=== PATIENT | female | born 1955 | race Caucasian/White ===

== ENCOUNTER 2019-07-19 16:12 | Inpatient (IN) | payer OTHER ==
[~2019-07-19] VITALS: Ht 170.2 cm; Wt 50.8 kg
--- OUTSIDE RECORDS SUMMARY | 2019-07-19 16:15 | XMS REPORT ---
Author [facility] Address Unknown Phone Unavailable Care Team Providers Care Log Sorting Supervisor Name Role Phone UNKNOWN, REFFERING PP Unavailable REYNALDO PURCELL M.D. Unavailable Unavailable Payers Payer Name Policy Type Policy Number Effective Date Expiration Date Problems This patient has no known problems. Allergies, Adverse Reactions, Alerts Allergy Name Allergy Type Status Severity Reaction(s) Onset Date Inactive Date Treating Clinician Comments iodine DA Active ME 2015-06-03 00:00:00 Medications This patient has no known medications. Encounters Start Date/Time End Date/Time Encounter Type Admission Type Attending Clinicians Care Facility Care Department Encounter ID 2017-02-05 15:48:00 2017-02-05 15:48:00 Outpatient C REYNALDO PURCELL M.D. [facility] [id number] Results Test Description Test Time Test Comments Text Results Atomic Results Result Comments [place], ERCP 2019-03-14 11:32:00 Reason for exam:->luq pain,abnormal imaging FINAL REPORT A fluoroscopic unit was utilized for a procedure performed in the operating room. No interpretation was requested. Please refer to the operative report regarding findings. Please refer to PACS for patient radiation dose information. Signed: Coy Shay Verified Date/Time: 03/14/2019 11:32:23 Reading Location: [address] Radiology Reading Room E lectronically signed by: COY SHAY MD on 03/14/2019 11:32 AM BREAST ULTRASOUND BILATERAL 2018-12-02 12:32:17 - BREAST ULTRASOUND BILATERALULTRASOUND OF BOTH BREASTS: 12/02/2018CLINICAL: History of Breast Cancer. Comparison is made to exams dated 04/22/2016 ultrasound and 04/22/2015 ultrasound - [facility]-. Color flow and real-time ultrasound of both breasts were performed. Tobin scale images of the real-time examination were reviewed. Status post bilateral mastectomy with implant reconstruction. Bilateral reconstructed breast survey ultrasound demonstrates no suspicious sonographic abnormality. No axillary lymphadenopathy was seen. Snowstorm appearance in the right axillary lymph node representing free silicone overall suggestive of implant rupture.IMPRESSION: BENIGN There is no sonographic evidence of malignancy. Free silicone noted in the right axillary region which is suggestiv e of implant rupture. Breast MRI without contrast silicone sequence could be obtained to evaluate implant integrity if clinically indicated.Mitchell Whitaker M.D. ss/:12/02/2018 12:32:17 Septic Tank Installer: Kandi Haq , [facility]-letter sent: BIRADS 1-2 Normal Ultrasound BI-RADS: 2 Benign - CT ABD PELVIS W/O CONT 2018-05-31 15:35:00 Name: MARISA MIRZA [facility] : 1955 Age/S: 63 / F [address] [place] [address] Unit #: [id number] Loc: [place] [address] Phys: Mick De Jr, MD Acct: [id number] Dis Date: Status: REG CLI PHONE #: [phone] Exam Date: 05/31/2018 1343 FAX #: [phone] Reason: UTERE STONE. EXAMS: CPT CODE: [id number] CT ABD PELVIS W/O CONT [address]843 CT OF THE ABDOMEN AND PELVIS PERFORMED May 31, 2018 . CLINICAL HISTORY: Ureteral stone . COMPARISON: November 13, 2016 . TECHNIQUE: 5 mm helical images through the abdomen and pelvis with no contrast. One or more of the following dose techniques were utilized; automated exposure control, adjustment of the mA and/or kV according to patient size, and/or utilization of iterative reconstruction technique. DLP: 183 mGy-cm. DISCUSSION: Lung bases are clear. Bilateral breast prostheses are noted general changes are noted in the osseous structures. Atherosclerotic vascular calcifications are noted in the great vessels.. The limits of a noncontrast exam, the liver, spleen, pancreas, and bilateral adrenals are within normal limits. The gallbladder is enlarged measuring 9.9 x 3.4 cm common bile duct is enlarged measuring 11 mm. The left kidney contour is irregular, compatible with prior scarring. Small stable calyceal stone is noted on the left. No right renal or ureteral calculi is seen. In the left mid ureter is a oval 13 x 5 x 5 mm calculi. This remains relatively unchanged compared to the prior scan of November 2016. No hydronephrosis or hydroureter is noted. No adenopathy or free fluid is seen in the abdomen or pelvis. Diverticulosis without radiographic evidence of diverticulitis. A normal-appearing appendix is p resent in the low midline pelvis. The uterus and adnexa are within normal limits. The visualized distal ureters and urinary bladder are within normal limits. IMPRESSION: 1.In the left mid ureter is a oval 13 x 5 x 5 mm calculi. This remains relatively unchanged compared to the prior scan of November 2016. 2. Small left renal calculi with scarring of the left kidney, stable compared to previous exam 3. Hydropic gallbladder 4. Diverticulosis PAGE 1 Signed Report (CONTINUED) Name: MARISA MIRZA [facility] : 1955 Age/S: 63 / F [address] [place] [address] Unit #: [id number] Loc: [place] [address] Phys: Mick De Jr, MD Acct: [id number] Dis Date: Status: REG CLI PHONE #: [phone] Exam Date: 05/31/2018 1347 FAX #: [phone] Reason: UTERE STONE. EXAMS: CPT CODE: [id number] CT ABD PELVIS W/O CONT 23951 <Continued> at 1533 Reported and signed by: Ivon Desouza M.D. CC: Mick De Jr, MD Technologist:RT Mariel(R)(CT) CTDI: DLP: Trnscb Date/Time: 05/31/2018 (1535) tESG Orig Print D/T: S: 05/31/2018 (1538) CTDI: DLP: PAGE 2 Signed Report
[2019-07-19] MEDS ORDERED: ONDANSETRON HCL INJ 2MG/ML 2ML 2 MG/ML VIAL IV STA (16:25)
[2019-07-19] MEDS ORDERED: SODIUM CHLORIDE 0.9% 1000ML 1,000 ML IV STA ×2 (16:25→19:13)
[2019-07-19] MEDS ORDERED: MORPHINE SULFATE INJ 4 MG/ML INJ 1ML IV STA ×2 (16:25→19:33)
[2019-07-19 16:49] LABS: BASOPHILS # (AUTO) 0.1 (0.0-0.1); BASOPHILS % 0.4 % (0.0-1.0); EOSINOPHILS % 0.2 % (0.0-6.0); HEMATOCRIT 39.4 % (34.2-44.1); HEMOGLOBIN 13.4 g/dL (12.0-16.0); LYMPHOCYTES # (AUTO) 1.4 (1.0-3.2); LYMPHOCYTES % 11.6 % (18.0-39.1); MEAN CORPUSCULAR HEMOGLOBIN 30.5 pg (28-32); MEAN CORPUSCULAR VOLUME 89.5 fL (81-99); MONOCYTES # (AUTO) 1.3 (0.2-0.8); MONOCYTES % 11.4 % (4.4-11.3); NEUTROPHILS # (AUTO) 8.9 (2.1-6.9); NEUTROPHILS % 76.1 % (38.7-80.0); PLATELET COUNT 323 x10e3/uL (140-360)
[2019-07-19] MEDS ORDERED: PANTOPRAZOLE 40 MG 10ML VIAL IV ONE (17:00)
[2019-07-19 17:06] LABS: ALANINE AMINOTRANSFERASE 15 IU/L (0-55); ALBUMIN 3.7 g/dL (3.5-5.0); ALBUMIN/GLOBULIN RATIO 0.9 (0.8-2.0); ALKALINE PHOSPHATASE 86 IU/L (40-150); AMYLASE 39 U/L (25-125); ANION GAP 13.5 mmol/L (8-16); BLOOD UREA NITROGEN 23 mg/dL (7-26); BUN/CREATININE RATIO 25 (6-25); CALCIUM 9.8 mg/dL (8.4-10.2); CARBON DIOXIDE 25 mmol/L (22-29); CHLORIDE 102 mmol/L (98-107); CREATINE KINASE 42 IU/L (29-168); CREATININE, SERUM 0.91 mg/dL (0.57-1.11); EST GLOMERULAR FILTRATION RATE > 60 ML/MIN (60-); GLUCOSE 103 mg/dL (74-118); LIPASE 23 U/L (8-78); POTASSIUM 4.5 mmol/L (3.5-5.1); SODIUM 136 mmol/L (136-145)
[2019-07-19 17:26] LABS: THYROID STIMULATING HORMONE 0.843 uIU/mL (0.350-4.940)
--- NOTE | 2019-07-19 17:38 | Diagnostic Imaging Report ---
EXAM: Gallbladder Ultrasound INDICATION: ^ABD PAIN ^Y COMPARISON: None. TECHNIQUE: Transverse and longitudinal images of the gallbladder were obtained. FINDINGS: Liver: Size: 13.5 cm in the right midclavicular line, normal Appearance: Normal echogenicity, smooth contour Mass: No focal masses Gallbladder: Stones/Sludge: Multiple echogenic stones in the gallbladder and moderate amount of sludge Wall: 0.4 cm, borderline Appearance: Borderline wall thickening. No pericholecystic fluid. The gallbladder is distended measuring 13.5 cm in length. Sonographic Lee's Sign: Negative Bile Ducts: Intrahepatic Ducts: No dilatation Extrahepatic Ducts: Common bile duct measures 0.4 cm, no dilatation but contains a 0.6 cm stone Pancreas: Visualized portions of the pancreatic head, neck and proximal body are normal. Kidneys: Length: Right 9.7 cm Echogenicity: Normal Collecting System: No hydronephrosis Stone: None Cyst/Mass: 0.3 cm echogenic focus in the right kidney may represent a nonobstructing stone. Vessels: Aorta: Visualized portions are normal Inferior Vena Cava: Visualized portions are normal Main Portal Vein: 0.8 cm, normal size with hepatopetal flow. Free Fluid: No ascites or pleural effusion IMPRESSION: Cholelithiasis and choledocholithiasis. Borderline thickness of the gallbladder wall (0.4 cm) with associated gallbladder hydrops may represent an early sign of acute cholecystitis. Recommend further evaluation with MRCP. Possible nonobstructing 0.3 cm right nephrolithiasis. Signed by: Dr. Liz Ceron M.D. on 07/19/2019 5:35 PM
--- NOTE | 2019-07-19 18:02 | Diagnostic Imaging Report ---
EXAMINATION: CHEST SINGLE (PORTABLE) INDICATION: ^ERMD ORDER ^[id number] ^1630 ^Y COMPARISON: None FINDINGS: AP view TUBES and LINES: None. LUNGS: Lungs are well inflated. Lungs are clear. There is no evidence of pneumonia or pulmonary edema. PLEURA: No pleural effusion or pneumothorax. HEART AND MEDIASTINUM: The cardiomediastinal silhouette is unremarkable.. BONES AND SOFT TISSUES: No acute osseous lesion. Soft tissues are unremarkable. UPPER ABDOMEN: No free air under the diaphragm. IMPRESSION: No acute thoracic abnormality. Signed by: Dr. Liz Ceron M.D. on 07/19/2019 5:58 PM
[2019-07-19] MEDS ORDERED: SODIUM CHLORIDE 0.9% 50ML 50 ML ONE (18:32)
[2019-07-19] MEDS ORDERED: IOPAMIDOL 370 MG/ML 200 ML INFUS..BTL INJ ONE (18:32)
[2019-07-19] MEDS ORDERED: PIPER-TAZ 3.375 GM 50 ML IV SCH (18:45)
[2019-07-19] MEDS ORDERED: SODIUM CHLORIDE 0.9% 1000ML 1,000 ML IV SCH (18:52)
[2019-07-19] MEDS ORDERED: ONDANSETRON HCL INJ 2MG/ML 2ML 2 MG/ML VIAL IV PRN (19:00)
[2019-07-19] MEDS ORDERED: MORPHINE SULFATE 2 MG/ML SYR 1ML IV PRN (19:00)
--- NOTE | 2019-07-19 19:13 | Diagnostic Imaging Report ---
EXAM: CT Abdomen and Pelvis WITH contrast INDICATION: ^abd pain COMPARISON: Gallbladder ultrasound 07/19/2019 TECHNIQUE: Abdomen and pelvis were scanned utilizing a multidetector helical scanner from the lung base to the pubic symphysis after administration of IV contrast. Coronal and sagittal reformations were obtained. Routine protocol was performed. Scan was performed when during portal venous phase. IV CONTRAST: 100 mL of Isovue-370 ORAL CONTRAST: None RADIATION DOSE: Total DLP: 194.2 mGy*cm Estimated effective dose: (DLP x 0.015 x size factor) mSv COMPLICATIONS: None FINDINGS: LINES and TUBES: None. LOWER THORAX: Unremarkable HEPATOBILIARY: No focal hepatic lesions. No biliary ductal dilation. GALLBLADDER: Cholelithiasis. Asymmetry wall thickening near the gallbladder fundus, measuring up to 0.6 cm. The gallbladder is distended measuring 13 cm in length consistent with hydropic gallbladder. There is mild fat stranding surrounding the gallbladder. SPLEEN: No splenomegaly. PANCREAS: No focal masses or ductal dilatation. ADRENALS: No adrenal nodules KIDNEYS/URETERS: Kidneys enhance symmetrically. No hydronephrosis. 1.1 cm low-attenuation cyst in the upper pole of the left kidney. Nonobstructing 3 mm calcified stone in the inferior pole of the left kidney on coronal image 54. No stones. GI TRACT: No abnormal distention, wall thickening, or evidence of bowel obstruction. Scattered diverticulosis throughout the sigmoid colon without diverticulitis. Appendix is no visualized. PELVIC ORGANS/BLADDER: Unremarkable. LYMPH NODES: No lymphadenopathy. VESSELS: Unremarkable. PERITONEUM / RETROPERITONEUM: No free air or fluid. BONES: Moderate degenerative changes at L4-L5 and L5-S1. SOFT TISSUES: Bilateral breast implants. IMPRESSION: Cholelithiasis with CT findings highly concerning for acute cholecystitis. Diverticulosis of the sigmoid colon without diverticulitis. Nonobstructing 3 mm left renal stone. Signed by: Dr. Liz Ceron M.D. on 07/19/2019 7:10 PM
[2019-07-19] MEDS: MORPHINE SULFATE INJ 4 MG/ML INJ 1ML IV PRN (19:54)
[2019-07-19 20:00] VITALS: BP 139/77
--- NOTE | 2019-07-19 20:05 | NUR ---
received patient from [facility]. via wheelchair. Patient is alert and oriented. IV to right Ac intact. Patient ambulates independently. Assisted to bed. Call light within reached.
[2019-07-19 21:24] VITALS: BP 139/77
[2019-07-19] MEDS ORDERED: LOTRONEX1 MG PO (23:26)
[2019-07-19] MEDS ORDERED: CELEBREX100 MG PO (23:27)
[2019-07-19] MEDS ORDERED: LEXAPRO20 MG PO (23:27)
[2019-07-19 23:50] VITALS: BP 139/77
[2019-07-20] VITALS (8 sets, daily range): BP systolic 99–129; BP diastolic 65–78
[2019-07-20 00:40] LABS: AMPHETAMINES SCREEN,URINE POSITIVE (NEGATIVE); BENZODIAZEPINES SCREEN,URINE NEGATIVE (NEGATIVE); PHENCYCLIDINE SCREEN,URINE NEGATIVE (NEGATIVE)
[2019-07-20 00:41] LABS: CLARITY,URINE CLEAR (CLEAR); COLOR,URINE YELLOW (YELLOW); KETONES,URINE 1+ (NEGATIVE); LEUKOCYTE ESTERASE ,URINE NEGATIVE (NEGATIVE); NITRITE,URINE NEGATIVE (NEGATIVE); PROTEIN,URINE DIPSTICK NEGATIVE (NEGATIVE)
[2019-07-20 00:42] LABS: BILIRUBIN,URINE SMALL (NEGATIVE); URINE UROBILINOGEN 0.2 mg/dL (0.2 - 1)
[2019-07-20] MEDS: SODIUM CHLORIDE 0.9% 1000ML 1,000 ML IV SCH ×2 (00:45→08:32)
[2019-07-20] MEDS ORDERED: MORPHINE SULFATE INJ 4 MG/ML INJ 1ML IV PRN (00:45)
[2019-07-20] MEDS: MORPHINE SULFATE INJ 4 MG/ML INJ 1ML IV PRN ×3 (00:45→11:01)
[2019-07-20 00:49] LABS: BACTERIA,URINE RARE /HPF; EPITHELIAL CELLS,URINE RARE /LPF
[2019-07-20] MEDS: PIPER-TAZ 3.375 GM 50 ML IV SCH ×4 (02:17→20:15)
[2019-07-20] MEDS ORDERED: SODIUM CHLORIDE 0.9% 50ML 50 ML ONE (09:42)
[2019-07-20] MEDS ORDERED: GADOBENATE DIMEGLUMINE 1 ML IV ONE (09:42)
--- NOTE | 2019-07-20 12:47 | Diagnostic Imaging Report ---
MRI abdomen without with contrast and MRCP HISTORY: Cholelithiasis, cholecystitis, suspected choledocholithiasis Comparison: CT abdomen/pelvis with contrast from 07/19/2019 Technique: Multiplanar and multisequence MRI images of the abdomen were obtained before and after the administration of 10 cc of MultiHance. Three-dimensional reconstructed images of the biliary tree are also reviewed. FINDINGS: Please note that examination is limited by motion artifact, most notably on the postcontrast images. The gallbladder is significantly distended measuring up to 12.9 cm and contains multiple filling defects compatible with gallstones. There is mild wall thickening/edema present. No significant pericholecystic fluid is present. There is mild prominence of the central intrahepatic bile ducts. There is dilatation of the common bile duct measuring up to 1.4 cm. No definitive filling defect is appreciated within the biliary system. However, there is abrupt tapering at the distal common bile duct at the level of the ampulla. No discrete mass is identified within the region of the ampulla or pancreatic head. The pancreatic duct measures 3 mm in caliber. The liver is normal in size and attenuation without evidence for focal abnormality. The stomach, spleen, pancreas, and bilateral adrenal glands are unremarkable. The portal venous system, SMV, and splenic vein are patent. The kidneys are normal in size and location and enhance symmetrically. There are bilateral renal cysts. There is no evidence for hydronephrosis. The visualized loops of bowel are clear normal in caliber. No free fluid or enlarged lymph nodes are identified within the abdomen. Impression: Cholelithiasis with hydropic gallbladder and mild gallbladder wall thickening concerning for acute cholecystitis as noted on the prior CT examination. Significant dilatation of the common bile duct measuring up to 1.4 cm. No definite filling defect identified within the biliary system. However, there is abrupt tapering of the common bile duct the level of the ampulla and a distal common bile duct stone stone or other ampullary pathology cannot be entirely excluded on the basis of this examination. Further evaluation could be performed with ERCP if clinically indicated. Signed by: Dr. Arvin Santoyo MD on 07/20/2019 12:43 PM
[2019-07-20] MEDS ORDERED: IOPAMIDOL 300MG/ML 50ML INFUS..BTL IV ONE (13:38)
[2019-07-20] MEDS ORDERED: BUPIVACAINE 0.5%/EPI 30 ML SDV INJ ONE (13:38)
--- NOTE | 2019-07-20 13:42 | NUR ---
left for surgery
[2019-07-20] MEDS ORDERED: HYDROMORPHONE 1MG/1ML INJ ONE (15:13)
[2019-07-20] MEDS ORDERED: SUGAMMADEX SODIUM 200 MG/2 ML VIAL IV ONE (15:13)
[2019-07-20] MEDS ORDERED: NALOXONE HCL INJ 0.4 MG/ML AMP IV PRN (16:15)
[2019-07-20] MEDS ORDERED: HYDROMORPHONE 0.2MG/ML-SOD CHL 30ML PCA SYRINGE IV PRN (16:15)
[2019-07-20] MEDS ORDERED: LIDOCAINE HCL 2% LOCAL INJ 5 ML SDV VIAL INJ ONE (17:13)
[2019-07-20] MEDS ORDERED: DEXAMETHASONE SOD PHOS INJ 4 MG/ML VIAL ONE (17:13)
[2019-07-20] MEDS ORDERED: ONDANSETRON HCL INJ 2MG/ML 2ML 2 MG/ML VIAL ONE (17:13)
[2019-07-20] MEDS ORDERED: PROPOFOL IV EMULSION 10 MG/ML 20 ML VIAL ONE (17:13)
[2019-07-20] MEDS ORDERED: SUCCINYLCHOLINE CHLORIDE 20 MG/ML 10ML VIAL ONE (17:13)
[2019-07-20] MEDS ORDERED: ROCURONIUM BROMIDE 10 MG/ML 5ML VIAL IV ONE (17:13)
[2019-07-20] MEDS ORDERED: SEVOFLURANE INHAL SOLN 250 ML PEN BTL ONE (17:13)
[2019-07-20] MEDS ORDERED: ACETAMINOPHEN 1000 MG/100 ML IV ONE (17:13)
[2019-07-20] MEDS ORDERED: CEFTRIAXONE SOD 1 GM VIAL ONE (17:13)
[2019-07-20] MEDS ORDERED: HYDROMORPHONE 0.2MG/ML-SOD CHL 30ML PCA SYRINGE IV ONE (17:19)
[2019-07-20] MEDS ORDERED: MIDAZOLAM HCL 2 MG/2 ML VIAL ONE (17:37)
[2019-07-20] MEDS ORDERED: FENTANYL CITRATE/PF 100MCG/2 ML INJ ONE (17:37)
--- NOTE | 2019-07-20 17:51 | Operative Report ---
DATE OF PROCEDURE: 07/20/2019 SURGEON: Junaid Frazier MD PREOPERATIVE DIAGNOSES: Cholecystitis and cholelithiasis, rule out common bile duct stone. POSTOPERATIVE DIAGNOSES: Cholecystitis, cholelithiasis with hydropic gallbladder and stone impacted at the cystic duct common duct junction. OPERATIONS PERFORMED: Laparoscopy, exploratory laparotomy, and cholecystectomy with removal of stone impacted at the cystic duct common duct junction. JOB SETTER HONING: Dr. Wes Frazier and JC Zapien. ANESTHESIA: General. COMPLICATIONS: None. ESTIMATED BLOOD LOSS: 50 mL. DESCRIPTION OF PROCEDURE: With the patient lying in bed in the supine position under good general endotracheal anesthesia, the abdomen was prepped with Betadine solution and draped in the usual manner. A Veress needle was introduced into the umbilicus and pneumoperitoneum was established without any difficulty. An 11 mm trocar was placed into the umbilicus and a 10 mm video laparoscope was placed into the intraabdominal cavity. Under direct vision, three 5 mm trocars were placed in the right subcostal region. Video laparoscopy at this point revealed a hydropic gallbladder that I actually extended all the way down to the right lower quadrant. The omentum was stuck to the gallbladder covering it up and the gallbladder was rather thick-walled. The adhesions to the gallbladder were then and the gallbladder was then decompressed with a needle and white bile consistent with hydropic gallbladder was aspirated. After this was done, we were then able to grasp the gallbladder. The rest of the abdominal exploration did not reveal any other abnormalities. The peritoneum overlying the neck of the gallbladder was then opened and there was a lot of inflammatory reaction around the triangle of Calot. The neck of the gallbladder was then slowly and carefully and the common duct was similarly identified and right at the junction of the cystic duct and common duct junction, there was a hard mass consistent with stone. We spent quite a bit of time dissecting the area, but we could not be sure laparoscopically whether this stone was actually in the common duct or whether the stone was in the distal cystic duct except preoperative studies, that the patient had were suspicious of the stone being in the common duct and since we could not be certain where the stone was, where the cystic duct and common duct junction was. We decided to go ahead and opened, so that we could better delineate the anatomy. The trocars were then removed and right subcostal incision was made, carried down through the subcutaneous tissue through the anterior fascia of the rectus muscle. The rectus muscle was divided with the cautery. The posterior rectus sheath was opened and the abdomen was entered. Upon entering the abdominal cavity, exploration again revealed a palpable hard mass at the cystic duct and common duct junction, and we could not be sure whether the stone was in the cystic duct or in the common duct. The cystic artery was then identified and ligated with a 2-0 silk tie and the gallbladder was then taken down from the top using the cautery scissors. There was a lot of inflammatory reaction in the liver bed. Nonetheless, the gallbladder was slowly and carefully taken down all the way down to the neck. The rather long gallbladder was then resected leaving the cystic duct in place, so that we could actually have a better look at the area of the triangle Calot. After the gallbladder was sent for pathological examination, the cystic duct was then slowly and carefully dissected towards the common duct. There was a lot of inflammatory reaction in the cystic duct and common duct junction. We were able to dissect the cystic duct and common duct junction. The stone was actually impacted in the cystic duct, so we went ahead at this point and opened the cystic duct and milked the stone out. After this was done, the cystic duct and common duct junction was then ligated with 2-0 silk tie. The whole area was then thoroughly irrigated and perfect hemostasis was ascertained. We decided that we did not need to explore the common duct, the patient actually by history had an ERCP performed only 3 months ago, which was negative at that time by the history that the patient gave us. The whole area was sterilely irrigated, perfect hemostasis was ascertained, and the wound was then closed in layers. The posterior rectus sheath was then closed with a running suture of #1 Vicryl. Anterior rectus sheath was closed with a running suture of #1 Vicryl and the skin was closed with clips. The fascia at the umbilicus was closed with a [id number]-[id number]-bojry of 0 Vicryl. All wounds were infiltrated with 0.25% Marcaine solution. Subcutaneous tissue was approximated with 3-0 Vicryl and the laparoscopic wounds were closed with subcuticular 5-0 Vicryl and the skin of the subcostal incision was closed with clips. Dressings were applied. The sponge, lap, and needle count was correct. The patient tolerated the procedure well and returned to the recovery room in stable condition. MD CAITLIN Nixon/TANESHA /[id number]
--- NOTE | 2019-07-20 17:55 | NUR ---
PT ARRIVED TO FLOOR, VIA WHEEL CHAIR ,PT RESP EVEN AND UNLABORED AT THIS TIME, NO C/O PAIN WHEN ASKED, PT ABLE TO MAKE NEEDS KNOWN, PT ORIENTED TO ROOM AND CALL LIGHT.
[2019-07-20] MEDS ORDERED: ACETAMINOPHEN 1000 MG/100 ML IV PRN (18:00)
--- NOTE | 2019-07-20 19:22 | NUR ---
WALKING ROUNDS COMPLETE, REPORT GIVEN TO ONCOMING NURSE.
[2019-07-20] MEDS: PANTOPRAZOLE 40 MG 10ML VIAL IV SCH (19:27)
[2019-07-21] VITALS (7 sets, daily range): BP systolic 118–153; BP diastolic 67–83
[2019-07-21] MEDS: PIPER-TAZ 3.375 GM 50 ML IV SCH ×4 (02:15→22:37)
[2019-07-21 06:05] LABS: BASOPHILS % 0.1 % (0.0-1.0); HEMATOCRIT 35.2 % (34.2-44.1); HEMOGLOBIN 11.4 g/dL (12.0-16.0); LYMPHOCYTES # (AUTO) 1.1 (1.0-3.2); LYMPHOCYTES % 8.1 % (18.0-39.1); MEAN CORPUSCULAR HEMOGLOBIN 30.2 pg (28-32); MEAN CORPUSCULAR HGB CONC 32.4 g/dL (31-35); MEAN CORPUSCULAR VOLUME 93.4 fL (81-99); MONOCYTES # (AUTO) 1.7 (0.2-0.8); MONOCYTES % 12.8 % (4.4-11.3); NEUTROPHILS # (AUTO) 10.2 (2.1-6.9); NEUTROPHILS % 78.6 % (38.7-80.0); PLATELET COUNT 306 x10e3/uL (140-360); RED BLOOD COUNT 3.77 x10e6/uL (3.6-5.1)
[2019-07-21 06:26] LABS: ALANINE AMINOTRANSFERASE 44 IU/L (0-55); ALBUMIN/GLOBULIN RATIO 0.9 (0.8-2.0); ALKALINE PHOSPHATASE 70 IU/L (40-150); ANION GAP 15.1 mmol/L (8-16); BLOOD UREA NITROGEN 12 mg/dL (7-26); BUN/CREATININE RATIO 14 (6-25); CALCIUM 8.8 mg/dL (8.4-10.2); CARBON DIOXIDE 23 mmol/L (22-29); CHLORIDE 105 mmol/L (98-107); CREATININE, SERUM 0.84 mg/dL (0.57-1.11); EST GLOMERULAR FILTRATION RATE > 60 ML/MIN (60-); GLUCOSE 129 mg/dL (74-118); POTASSIUM 5.1 mmol/L (3.5-5.1); SODIUM 138 mmol/L (136-145)
--- NOTE | 2019-07-21 07:00 | NUR ---
REPORT RECEIVED DURING WALKING ROUNDS, PT RESTING QUIETLY IN BED, CALL LIGHT WITH IN REACH Addendum: 07/21/19 at 0918 by Beverly Meléndez RN AGRICULTURAL TECHNICAL OFFICER PUMP REVIEWED WITH PREVIOUS NURSE
--- NOTE | 2019-07-21 09:16 | NUR ---
PT SCHEDULED FOR BRONCH TODAY, SPOKE WITH ANES ABOUT CONDITION, CONSENT PLACED ON CHART, MED REC AND PT IS NPO Addendum: 07/21/19 at 0918 by Beverly Meléndez RN PLEASE DISREGARD, WRONG PATIENT
--- NOTE | 2019-07-21 10:15 | NUR ---
ASSESSMENT: Spiritual concern Pt lonely and in pain. Pt states it is difficult to not have visitors. Intervention: Provided hospitality and empathic listening. Outcome: Pt expressed appreciation for support. No need to follow at this time. YESIKA EASLEY Male Infertility Specialist Spiritual Care Department O: [phone]
--- NOTE | 2019-07-21 10:41 | NUR ---
SPOKE WITH DR Feng ALMANZA, PT WAS NOT RESPONDING TO AMBULANCE OPERATIONS SUPERVISOR PUMP, ORDER FOR CANCELATION AND DILAUDID IVP ORDER GIVEN
[2019-07-21] MEDS: ONDANSETRON HCL INJ 2MG/ML 2ML 2 MG/ML VIAL IV PRN ×4 (10:42→22:51)
[2019-07-21] MEDS: HYDROMORPHONE 1MG/1ML INJ IV PRN ×4 (10:42→22:51)
[2019-07-21] MEDS: PANTOPRAZOLE 40 MG 10ML VIAL IV SCH (16:56)
[2019-07-21] MEDS: SODIUM CHLORIDE 0.9% 1000ML 1,000 ML IV SCH (17:00)
--- NOTE | 2019-07-21 17:05 | NUR ---
SPOKE WITH DR Ana MENDOSA REGARDING PTS INCREASED PULSE RATE, ORDERS GIVEN TO START FLUIDS
--- NOTE | 2019-07-21 19:30 | NUR ---
RECEIVED REPORT FROM DAY NURSE. PATIENT IS RESTING COMFORTABLY IN THE BED. BED IS IN THE LOWEST POSITION. DENIES PAIN OR DISCOMFORT. WILL CONTINUE TO MONITOR PATIENT.
[2019-07-22] VITALS (9 sets, daily range): BP systolic 132–155; BP diastolic 65–85
[2019-07-22] MEDS: SODIUM CHLORIDE 0.9% 1000ML 1,000 ML IV SCH ×3 (02:13→18:05)
[2019-07-22] MEDS: PIPER-TAZ 3.375 GM 50 ML IV SCH ×4 (02:13→19:59)
[2019-07-22] MEDS: HYDROMORPHONE 1MG/1ML INJ IV PRN ×3 (02:31→13:25)
[2019-07-22] MEDS: ONDANSETRON HCL INJ 2MG/ML 2ML 2 MG/ML VIAL IV PRN ×3 (02:50→13:25)
--- NOTE | 2019-07-22 07:00 | NUR ---
REPORT RECEIVED, WALKING ROUNDS PERFORMED, PT RESTING QUIETLY IN BED, CALL LIGHT WITH IN REACH,
--- NOTE | 2019-07-22 07:10 | NUR ---
REPORT GIVEN TO DAY NURSE. PATIENT IS RESTING COMFORTABLY IN THE BED. BED IS IN THE LOWEST POSITION AND CALL LIGHT IS WITHIN REACH.
[2019-07-22 09:09] LABS: BASOPHILS % 0.2 % (0.0-1.0); EOSINOPHILS % 0.3 % (0.0-6.0); HEMATOCRIT 35.1 % (34.2-44.1); HEMOGLOBIN 11.2 g/dL (12.0-16.0); LYMPHOCYTES % 8.2 % (18.0-39.1); MEAN CORPUSCULAR HEMOGLOBIN 29.5 pg (28-32); MEAN CORPUSCULAR HGB CONC 31.9 g/dL (31-35); MEAN CORPUSCULAR VOLUME 92.4 fL (81-99); MONOCYTES # (AUTO) 1.4 (0.2-0.8); MONOCYTES % 12.1 % (4.4-11.3); NEUTROPHILS # (AUTO) 9.3 (2.1-6.9); NEUTROPHILS % 78.7 % (38.7-80.0); PLATELET COUNT 301 x10e3/uL (140-360); RED CELL DISTRIBUTION WIDTH 13.1 % (11.7-14.4)
[2019-07-22 09:28] LABS: ALANINE AMINOTRANSFERASE 34 IU/L (0-55); ALBUMIN 2.7 g/dL (3.5-5.0); ALBUMIN/GLOBULIN RATIO 0.8 (0.8-2.0); ALKALINE PHOSPHATASE 64 IU/L (40-150); ANION GAP 13.1 mmol/L (8-16); BLOOD UREA NITROGEN 6 mg/dL (7-26); BUN/CREATININE RATIO 9 (6-25); CALCIUM 8.9 mg/dL (8.4-10.2); CARBON DIOXIDE 24 mmol/L (22-29); CHLORIDE 106 mmol/L (98-107); CREATININE, SERUM 0.69 mg/dL (0.57-1.11); EST GLOMERULAR FILTRATION RATE > 60 ML/MIN (60-); GLUCOSE 81 mg/dL (74-118); POTASSIUM 4.1 mmol/L (3.5-5.1); SODIUM 139 mmol/L (136-145)
--- NOTE | 2019-07-22 13:06 | NUR ---
DR Ana MENDOSA INTO SEE PT, DISCUSSED POC
[2019-07-22] MEDS: PANTOPRAZOLE 40 MG 10ML VIAL IV SCH (16:42)
--- NOTE | 2019-07-22 17:03 | NUR ---
DR Feng ALMANZA HERE TO MAKE ROUNDS Addendum: 07/22/19 at 1706 by Beverly Meléndez RN DRESSING REMOVED, 3 TROCHAR SITES TO ABDOMEN AND INCISION TO MID ABDOMEN WITH PATY
[2019-07-22] MEDS: HYDROCODONE/APAP 7.5MG-325MG 1 EA TAB PO PRN (17:55)
--- NOTE | 2019-07-22 19:25 | NUR ---
received report from day nurse. patient id resting comfortably in bed. bed is in lowest position and call light is within reach. Denies pain or discomfort. will continue to monitor patient.
[2019-07-23] VITALS: BP 142/82
[2019-07-23] MEDS: PIPER-TAZ 3.375 GM 50 ML IV SCH ×3 (01:06→14:20)
[2019-07-23 04:00] VITALS: BP 146/84
--- NOTE | 2019-07-23 06:39 | NUR ---
patient is resting in the bed, bed is in the lowest position and call light is within reach. No signs of pain or discomfort noted.
[2019-07-23 08:30] VITALS: BP 157/95
[2019-07-23] MEDS: HYDROCODONE/APAP 7.5MG-325MG 1 EA TAB PO PRN ×2 (09:06→14:30)
[2019-07-23 09:11] VITALS: BP 157/95
--- NOTE | 2019-07-23 09:12 | NUR ---
TOLERATING REGULAR DIET AT THIS TIME, REPORTS PASSING FLATUS, MEDICATED PER MD ORDER FOR 7/10 ABDOMINAL PAIN, EDUCATED TO NOT GET OOB WITHOUT CALLING FOR ASSISTANCE, PT VERBALIZED UNDERSTANDING, CALL LIGHT WITHIN REACH
[2019-07-23 09:31] LABS: BASOPHILS % 0.4 % (0.0-1.0); EOSINOPHILS # (AUTO) 0.1 (0.0-0.4); EOSINOPHILS % 1.1 % (0.0-6.0); HEMATOCRIT 38.3 % (34.2-44.1); HEMOGLOBIN 12.6 g/dL (12.0-16.0); LYMPHOCYTES # (AUTO) 1.1 (1.0-3.2); LYMPHOCYTES % 12.6 % (18.0-39.1); MEAN CORPUSCULAR HEMOGLOBIN 29.4 pg (28-32); MEAN CORPUSCULAR HGB CONC 32.9 g/dL (31-35); MEAN CORPUSCULAR VOLUME 89.5 fL (81-99); MONOCYTES # (AUTO) 0.8 (0.2-0.8); MONOCYTES % 9.1 % (4.4-11.3); NEUTROPHILS # (AUTO) 6.9 (2.1-6.9); NEUTROPHILS % 76.5 % (38.7-80.0); PLATELET COUNT 363 x10e3/uL (140-360); RED BLOOD COUNT 4.28 x10e6/uL (3.6-5.1); RED CELL DISTRIBUTION WIDTH 12.9 % (11.7-14.4)
[2019-07-23 09:51] LABS: ALANINE AMINOTRANSFERASE 31 IU/L (0-55); ALBUMIN 2.9 g/dL (3.5-5.0); ALBUMIN/GLOBULIN RATIO 0.8 (0.8-2.0); ALKALINE PHOSPHATASE 64 IU/L (40-150); ANION GAP 16.3 mmol/L (8-16); BLOOD UREA NITROGEN 5 mg/dL (7-26); BUN/CREATININE RATIO 7 (6-25); CALCIUM 9.3 mg/dL (8.4-10.2); CARBON DIOXIDE 22 mmol/L (22-29); CHLORIDE 106 mmol/L (98-107); CREATININE, SERUM 0.67 mg/dL (0.57-1.11); EST GLOMERULAR FILTRATION RATE > 60 ML/MIN (60-); GLUCOSE 106 mg/dL (74-118); POTASSIUM 3.3 mmol/L (3.5-5.1); SODIUM 141 mmol/L (136-145)
[2019-07-23 12:00] VITALS: BP 150/79
[2019-07-23] MEDS ORDERED: POTASSIUM CHLORIDE 10MEQ EA PO ONE (12:30)
[2019-07-23] MEDS: SODIUM CHLORIDE 0.9% 1000ML 1,000 ML IV SCH (14:09)
[2019-07-23] MEDS: PANTOPRAZOLE 40 MG 10ML VIAL IV SCH (16:39)
[2019-07-23 17:43] VITALS: BP 137/79
[2019-07-23] MEDS ORDERED: LEVAQUIN500 MG PO (18:37)
[2019-07-23] MEDS ORDERED: TYLENOL WITH C1 EACH PO (18:37)
--- NOTE | 2019-07-23 19:04 | NUR ---
MD Feng ALMANZA INTO SEE PT, DISCUSSED DISCHARGE INSTRUCTIONS, VERBALIZED UNDERSTANDING, WHEELED OFF UNIT VIA WC FOR DISCHARGE, NO CHANGE IN CONDITION
== END 2019-07-23 19:03 | disposition home or self-care (01) | DRG 415 ==
LOC: ER 16:12 → ERHOLD 18:55 → ER 19:56 → MED/SURG2 20:30 → MED/SURG 07-20 17:08
PROC: 0FJ44ZZ Inspection of Gallbladder, Percutaneous Endoscopic Approach (ICD-10-PCS; 2019-07-20)
PROC: 0FT40ZZ Resection of Gallbladder, Open Approach (ICD-10-PCS; principal; 2019-07-20 11:30)
DX: K80.12 Calculus of gallbladder with acute and chronic cholecystitis without obstruction (principal); Z68.1 Body mass index [BMI] 19.9 or less, adult; K82.1 Hydrops of gallbladder; R63.6 Underweight; K58.9 Irritable bowel syndrome, unspecified; Z85.3 Personal history of malignant neoplasm of breast; Z90.13 Acquired absence of bilateral breasts and nipples
CPT/HCPCS: 36415; 71045; 74177; 74183; 76705; 80053; 80307; 81001; 82150; 82550; 82553; 83690; 84443; 84484; 85025; 87086; 88304; 93005; 96361; 99284; C1766; J0330; J0696; J1100; J1170; J2001; J2250; J2270; J2405; J2543; J3010; J7030; Q9967

== ENCOUNTER → 2021-05-29 | Day surgery (SDC) | payer MEDICARE ==
[2021-05-27 13:36] LABS: BASOPHILS # (AUTO) 0.1 (0.0-0.1); EOSINOPHILS # (AUTO) 0.1 (0.0-0.4); EOSINOPHILS % 1.6 % (0.0-6.0); HEMATOCRIT 39.8 % (34.2-44.1); HEMOGLOBIN 12.5 g/dL (12.0-16.0); LYMPHOCYTES # (AUTO) 1.4 (1.0-3.2); LYMPHOCYTES % 22.5 % (18.0-39.1); MEAN CORPUSCULAR HEMOGLOBIN 29.6 pg (28-32); MEAN CORPUSCULAR HGB CONC 31.4 g/dL (31-35); MEAN CORPUSCULAR VOLUME 94.3 fL (81-99); MONOCYTES # (AUTO) 0.7 (0.2-0.8); MONOCYTES % 10.5 % (4.4-11.3); NEUTROPHILS % 64.1 % (38.7-80.0); PLATELET COUNT 254 x10e3/uL (140-360); RED BLOOD COUNT 4.22 x10e6/uL (3.6-5.1); RED CELL DISTRIBUTION WIDTH 13.4 % (11.7-14.4)
[~2021-05-29] MED LIST: CELEBREX100 MG PO; EPHEDRINE SULFATE INJ 50 MG/ML VIAL ONE; FENTANYL CITRATE/PF 100MCG/2 ML INJ ONE; GLUCAGON FOR INJ 1 MG VIAL ONE; HYOSCYAMINE SULFATE 0.5 MG/ML INJ ONE; LEVAQUIN500 MG PO; LEXAPRO20 MG PO; LIDOCAINE HCL 2% LOCAL INJ 5 ML SDV VIAL INJ ONE; LOTRONEX1 MG PO; METOPROLOL PO; MIDAZOLAM HCL 2 MG/2 ML VIAL ONE; OMEPRAZOLE40 MG PO; PHENYLEPHRINE HCL 1% 10 MG/ML VIAL ONE; POTASSIUM CITR10 MEQ PO; PROPOFOL IV EMULSION 10 MG/ML 20 ML VIAL ONE; TYLENOL WITH C1 EACH PO
[2021-05-29 10:00] VITALS: BP 125/62
[2021-05-29 15:04] LABS: C DIFFICILE TOXIN A&B AMP PROB NEGATIVE (NEGATIVE); WBC,FECAL (FECAL LACTOFERRIN) NEGATIVE (NEGATIVE)
== END | disposition home or self-care (01) ==
LOC: OR 06:48
PROVIDERS: ATTEND Internal Medicine Gastroenterology
DX: K29.70 Gastritis, unspecified, without bleeding (principal); K58.0 Irritable bowel syndrome with diarrhea; K20.90 Esophagitis, unspecified without bleeding; K31.1 Adult hypertrophic pyloric stenosis; K21.9 Gastro-esophageal reflux disease without esophagitis; K57.30 Diverticulosis of large intestine without perforation or abscess without bleeding; K62.89 Other specified diseases of anus and rectum; K64.8 Other hemorrhoids; M47.812 Spondylosis without myelopathy or radiculopathy, cervical region; R05.3 Chronic cough; H91.90 Unspecified hearing loss, unspecified ear; N20.0 Calculus of kidney; F32.A Depression, unspecified; F41.9 Anxiety disorder, unspecified; Z01.812 Encounter for preprocedural laboratory examination; Z20.822 Contact with and (suspected) exposure to COVID-19; Z79.899 Other long term (current) drug therapy; Z85.3 Personal history of malignant neoplasm of breast; Z92.21 Personal history of antineoplastic chemotherapy; Z86.16 Personal history of COVID-19
CPT/HCPCS: 36415; 43239; 43245; 45380; 83630; 83993; 85025; 87045; 87177; 87328; 87493; C1726; J1610; J1980; J2001; J2250; J2370; J2704; J3010; U0002; 45378

== ENCOUNTER → 2022-06-01 | Day surgery (SDC) | payer MEDICARE ==
[2022-05-29 11:57] LABS: BASOPHILS # (AUTO) 0.1 (0.0-0.1); BASOPHILS % 0.7 % (0.0-1.0); EOSINOPHILS # (AUTO) 0.1 (0.0-0.4); EOSINOPHILS % 1.7 % (0.0-6.0); HEMATOCRIT 42.3 % (34.2-44.1); HEMOGLOBIN 13.5 g/dL (12.0-16.0); LYMPHOCYTES # (AUTO) 1.7 (1.0-3.2); LYMPHOCYTES % 21.8 % (18.0-39.1); MEAN CORPUSCULAR HEMOGLOBIN 29.9 pg (28-32); MEAN CORPUSCULAR HGB CONC 31.9 g/dL (31-35); MEAN CORPUSCULAR VOLUME 93.8 fL (81-99); MONOCYTES # (AUTO) 0.8 (0.2-0.8); MONOCYTES % 10.4 % (4.4-11.3); NEUTROPHILS % 65.1 % (38.7-80.0); PLATELET COUNT 300 x10e3/uL (140-360); RED BLOOD COUNT 4.51 x10e6/uL (3.6-5.1)
[~2022-06-01] MED LIST changes: +BENZONATATE100 MG PO; +BUPROPION HCL100 MG PO; +CHLORDIAZEPOXID25 MG PO; +COLESTIPOL HCL1 GM PO; +DICYCLOMINE HCL20 MG PO; -EPHEDRINE SULFATE INJ 50 MG/ML VIAL ONE; +FAMOTIDINE20 MG PO; -GLUCAGON FOR INJ 1 MG VIAL ONE; +HYDROXYCHLOROQ200 MG PO; -HYOSCYAMINE SULFATE 0.5 MG/ML INJ ONE; +METOCLOPRAMIDE HCL 10 MG/2ML VIAL ONE; -MIDAZOLAM HCL 2 MG/2 ML VIAL ONE; +NEURONTIN100 MG PO; -PHENYLEPHRINE HCL 1% 10 MG/ML VIAL ONE; +PROTONIX20 MG PO
[2022-06-01 08:33] VITALS: BP 139/75
== END | disposition home or self-care (01) ==
LOC: ENDO 07:08
PROVIDERS: ATTEND Internal Medicine Gastroenterology
DX: K21.00 Gastro-esophageal reflux disease with esophagitis, without bleeding (principal); K31.7 Polyp of stomach and duodenum; K29.50 Unspecified chronic gastritis without bleeding; K31.1 Adult hypertrophic pyloric stenosis; K58.9 Irritable bowel syndrome, unspecified; R03.0 Elevated blood-pressure reading, without diagnosis of hypertension; R00.0 Tachycardia, unspecified; M19.90 Unspecified osteoarthritis, unspecified site; F41.9 Anxiety disorder, unspecified; F32.A Depression, unspecified; Z01.810 Encounter for preprocedural cardiovascular examination; Z01.812 Encounter for preprocedural laboratory examination; Z79.899 Other long term (current) drug therapy; Z86.16 Personal history of COVID-19; Z85.3 Personal history of malignant neoplasm of breast
CPT/HCPCS: 36415; 43239; 43245; 85025; 93005; C1726; C9113; J2001; J2704; J2765; J3010; 43450

== ENCOUNTER → 2022-10-16 | Outpatient (CLI) | payer MEDICARE ==
[~2022-10-16] MED LIST changes: -FENTANYL CITRATE/PF 100MCG/2 ML INJ ONE; -LIDOCAINE HCL 2% LOCAL INJ 5 ML SDV VIAL INJ ONE; -METOCLOPRAMIDE HCL 10 MG/2ML VIAL ONE; -PROPOFOL IV EMULSION 10 MG/ML 20 ML VIAL ONE
== END ==
LOC: RAD 13:42
PROVIDERS: ATTEND Nurse Practitioner Adult Health
DX: R05.3 Chronic cough (principal); I50.30 Unspecified diastolic (congestive) heart failure; F17.210 Nicotine dependence, cigarettes, uncomplicated
CPT/HCPCS: 71046; 93306